=== PATIENT | male | born 1990 | race Two or more races ===

== ENCOUNTER 2024-10-27 16:31 | Inpatient (IN) | payer MEDICAID, OTHER ==
[~2024-10-27] VITALS: Ht 175.3 cm; Wt 112.5 kg
--- NOTE | 2024-10-27 17:45 | ED.PDOC ---
GI ASSESSMENT HPI Comments 34-year-old male with no significant past medical history complaining of left upper quadrant pain for the last 2 days, associated with nausea, vomiting and dark red blood in his vomit. He denies fever, diarrhea, constipation or dysuria. Patient admits to recently using methamphetamine. Chief Complaint: Abdominal Pain Time Seen by MD: 17:40 Reviewed Notes: Nurses Notes, Medications, Allergies Allergies: Coded Allergies: NO KNOWN ALLERGIES (Unverified , 10/27/24) Information Source: Patient Mode of Arrival: Ambulatory Timing: Days Duration: Since onset Prehospital treatment: None Quality: None Vomitus: Watery Stool: Normal Severity: Moderate Recent: None Recent Hx of: None Pain Location: Epigastric, LUQ Modifying Factors: Nothing Associated sign and symptoms: Nausea, Vomiting, Abdominal Pain Past Medical History PAST MEDICAL HISTORY: Denies Surgical History: Denies all surgeries Family History Family History: Unknown Social History Smoker: Unknown Alcohol: Unknown Drugs: Methamphetamine Lives In: Home Constitutional: denies: chills, diaphoresis, fatigue, fever, malaise, sweats, weakness, others EENTM: denies: blurred vision, double vision, ear bleeding, ear discharge, ear drainage, ear pain, ear ringing, eye pain, eye redness, hearing loss, mouth pain, mouth swelling, nasal discharge, nose bleeding, nose congestion, nose pain, photophobia, tearing, throat pain, throat swelling, voice changes, others Respiratory: denies: cough, hemoptysis, orthopnea, SOB at rest, shortness of breath, SOB with excertion, stridor, wheezing, others Cardiovascular: denies: chest pain, dizzy spells, diaphoresis, Dyspnea on exertion, edema, irregular heart beat, left arm pain, lightheadedness, palpitations, PND, syncope, others Gastrointestinal: reports: abdominal pain, nausea, vomiting; denies: abdomen distended, blood streaked bowels, constipated, diarrhea, dysphagia, difficulty swallowing, hematemesis, melena, poor appetite, poor fluid intake, rectal bleeding, rectal pain, others Genitourinary: denies: burning, dysuria, flank pain, frequency, hematuria, incontinence, penile discharge, penile sore, pain, testicle pain, testicle swelling, urgency, others Neurological: denies: dizziness, fainting, headache, left sided numbness, left sided weakness, numbness, paresthesia, pre-existing deficit, right sided numbness, right sided weakness, seizure, speech problems, tingling, tremors, weakness, others Musculoskeletal: denies: back pain, gout, joint pain, joint swelling, muscle pain, muscle stiffness, neck pain, others Integumetry: denies: bruises, change in color, change in hair/nails, dryness, laceration, lesions, lumps, rash, wounds, others Allergic/Immunocompromised: denies: Difficulty Healing, Frequent Infections, Hives, Itching, others Hematologic/Lymphatic: denies: anemia, blood clots, easy bleeding, easy bruising, swollen glands, others Endocrine: denies: excessive hunger, excessive sweating, excessive thirst, excessive urination, flushing, intolerance to cold, intolerance to heat, unexplained weight gain, unexplained weight loss, others Psychiatric: denies: anxiety, bipolar disorder, depression, hopeless, panic disorder, schizophrenia, sleepless, suicidal, others All Other Systems: Reviewed and Negative Physical Exam General Appearance: Mild Distress HEENT: Other (Pupils and face symmetric. Dry mucous membranes.) Neck: Full Range of Motion, Normal Inspection Respiratory: Lungs Clear, No Accessory Muscle Use, No Respiratory Distress, Normal Breath Sounds Cardiovascular: No Edema, No JVD, Regular Rate/Rhythm Breast Exam: Deferred Gastrointestinal: Epigastric, LUQ, Soft, Tenderness Genitalia: Deferred Pelvic: Deferred Rectal: Deferred Extremities: Normal inspection, Normal range of motion, Non-tender, No pedal edema Neurologic: Alert (Oriented x4), Normal Affect, Normal Mood, Other (Ambulatory) Cerebellar Function: NOT DONE Reflexes: NOT DONE Skin: Dry, Pallor, Warm Lymphatic: NOT DONE Was a procedure done? Was a procedure done?: No GI differential Dx Differential Diagnosis: Gastritis/PUD, Gastroenteritis, Dehydration, Drug toxicity, Electrolyte Imbalance, Food Poisoning, Bacterial, Viral, Hypovolemia, Ischemic Bowel, Stress Ulcer X-Ray, Labs, Meds, VS Vital Signs Date Time Temp Pulse Resp B/P (MAP) Pulse Ox O2 Delivery O2 Flow Rate FiO2 10/27/24 18:39 80 18 100 Room Air 10/27/24 18:37 98.4 80 18 149/98 (115) 100 98.4 10/27/24 16:32 97.7 108 18 160/120 99 97.7 Lab Test 10/27/24 18:19 10/27/24 17:36 Range/Units White Blood Count 9.9 4.4-10.8 10^3/uL Red Blood Count 5.42 4.5-5.90 10^6/uL Hemoglobin 17.0 13.5-17.5 g/dL Hematocrit 47.4 41.0-53.0 % Mean Corpuscular Volume 87.4 80.0-100.0 fL Mean Corpuscular Hemoglobin 31.3 28.0-32.0 pg Mean Corpuscular Hemoglobin Concent 35.8 32.0-36.0 g/dL Red Cell Distribution Width 13.3 11.8-14.3 % Platelet Count 290 140-450 10^3/uL Mean Platelet Volume 8.5 6.9-10.8 fL Neutrophils (%) (Auto) 83.0 H 37.0-80.0 % Lymphocytes (%) (Auto) 11.6 10.0-50.0 % Monocytes (%) (Auto) 4.8 0.0-12.0 % Eosinophils (%) (Auto) 0.0 0.0-7.0 % Basophils (%) (Auto) 0.6 0.0-2.0 % Neutrophils # (Auto) 8.3 1.6-8.6 10 ^3/uL Lymphocytes # (Auto) 1.2 0.4-5.4 10 ^3/uL Monocytes # (Auto) 0.5 0-1.3 10 ^3/uL Eosinophils # (Auto) 0 0-0.8 10 ^3/uL Basophils # (Auto) 0.1 0-0.2 10 ^3/uL Nucleated Red Blood Cells 0.2 % Prothrombin Time 11.6 9.3-11.8 sec Prothrombin Time INR 1.11 0.9-1.15 Activated Partial Thromboplast Time 30.2 24.5-34.5 SEC Sodium Level 134 L 136-145 mmol/L Potassium Level 4.1 3.5-5.1 mmol/L Chloride Level 99 98-107 mmol/L Carbon Dioxide Level 21 20-31 mmol/L Anion Gap 14 5-15 Blood Urea Nitrogen 12 9-23 mg/dL Creatinine 1.07 0.700-1.30 mg/dL Glomerular Filtration Rate Calc 94 >90 mL/min BUN/Creatinine Ratio 11.2 10.0-20.0 Serum Glucose 105 74-106 mg/dL Calcium Level 9.7 8.7-10.4 mg/dL Total Bilirubin 0.9 0.2-1.0 mg/dL Aspartate Amino Transferase (AST) 71 H 13-40 U/L Alanine Aminotransferase (ALT) 77 H 7-40 U/L Alkaline Phosphatase 84 46-116 U/L Total Protein 7.9 5.7-8.2 g/dL Albumin 5.1 H 3.2-4.8 g/dL Lipase 50 12-53 U/L Urine Color Yellow Yellow Urine Clarity Clear Clear Urine pH 6.5 5.0-9.0 Urine Specific [place] 1.026 1.001-1.035 Urine Protein 1+ H Negative Urine Ketones 4+ H Negative Urine Blood Trace H Negative /uL Urine Nitrite Negative Negative Urine Bilirubin Negative Negative Urine Urobilinogen Normal Negative mg/dL Urine Leukocyte Esterase Negative Negative /uL Urine RBC <1 0 - 3 /hpf Urine Microscopic WBC 1 0-3 /HPF Urine Squamous Epithelial Cells Few <5 /hpf Urine Bacteria None seen None Seen /hpf Urine Glucose Normal Normal mg/dL Current Medications Medications (Trade) Dose Ordered Sig/Venu Route Start Time Stop Time Status Last Admin Sodium Chloride 1,000 ml @ 1,000 mls/hr Q1H ONCE IV 10/27/24 18:00 10/27/24 18:59 DC 10/27/24 18:30 Ondansetron HCl (Zofran) 4 mg ONCE ONCE IV 10/27/24 18:00 10/27/24 18:01 DC 10/27/24 18:54 Pantoprazole Sodium (Protonix) 40 mg ONCE ONCE IV 10/27/24 18:00 10/27/24 18:01 DC 10/27/24 18:54 PROCEDURE(s): ABPL - CT AB PEL WO CON-NO ORAL OR IV REASON: L abd pain, n/v hematemesis ORDER NUMBER(s): [id number], ACCESSION NUMBER(s): [id number] COMPUTERIZED TOMOGRAPHY ABDOMEN AND PELVIS WITHOUT CONTRAST REASON FOR EXAM: L abd pain, n/v hematemesis COMPARISON: None TECHNIQUE: Spiral scans were acquired from the diaphragm to the symphysis pubis without intravenous contrast administration. 2-D coronal and sagittal reformatted images were provided. Radiation optimization: All CT scans at this facility use at least one of these dose optimization techniques: Automated exposure control mA and/or kV adjustment per patient size (includes targeted exams where dose is matched to clinical indication) or iterative reconstruction. RADIATION DOSE: CTDI: 23.06 mGy DLP: 1326.81 mGy-cm FINDINGS: Respiratory motion artifact degrades evaluation of the lung bases. There is no pleural effusion. There is no pericardial effusion. The spleen is not enlarged. The liver is normal in size and contour. The liver is diffusely hypoattenuating. No calcified gallstone is identified. There is no pericholecystic edema. Evaluation of the abdominal organs is suboptimal in the absence of intravenous contrast. Unenhanced appearance of the pancreas is grossly unremarkable. The adrenal glands are normal. The kidneys are similar in size. There is no hydronephrosis of either kidney. The urinary bladder is decompressed and is not well evaluated on the current study. There is no renal, ureteral, or bladder calculus. There is no abdominal aortic aneurysm. No pathologic lymphadenopathy is identified by size criteria. No free fluid is identified in the abdomen or pelvis. The prostate and seminal vesicles are within normal limits. There is mild dependent and sigmoid colon diverticulosis without evidence of diverticulitis. The appendix is normal. There is no distention of the small bowel to suggest obstruction. There is no pneumoperi toneum. No acute osseous abnormality is identified. IMPRESSION: The liver is diffusely hypoattenuating which may be secondary to steatosis or another diffuse hepatic process. Correlate clinically and with liver function tests. No acute finding in the abdomen or pelvis to explain the patient's abdominal pain. Normal appendix. No evidence of bowel obstruction. X-Ray, Labs, Meds, VS Comment 44-year-old male with no significant past medical history complaining of epigastric and left upper quadrant pain, nausea, vomiting and bloody emesis, also admits to using meth yesterday Vitals remarkable for heart rate 108, BP 160/120 Exam remarkable for epigastric and left upper quadrant tenderness to palpation Rhythm strip independently interpreted by me: Sinus tach, rate 108, no ectopy. CT abdomen and pelvis showed liver hypoattenuation which could be due to steatosis or other hepatic process. No other acute findings. CBC unremarkable, CMP remarkable for AST 71, ALT 77, lipase normal, coag panel normal, UA positive for protein, ketones and blood consistent with volume contraction Patient treated with the following in the ED: 1 L 0.9 normal saline IV bolus, morphine 4 mg IV, Zofran 4 mg IV, Protonix 40 mg IV On re-evaluation, patient states pain has only partially improved. Vitals were stable. Plan is to admit the patient for pain and emesis control and GI evaluation. Time of 1ST Reevaluation: 18:10 Reevaluation 1ST: Unchanged Patient Education/Counseling: Diagnosis, Treatment Family Education/Counseling: No Family Present SEPSIS Sepsis Screen Date sepsis recognized/suspect: Oct 27, 2024 Time Sepsis recognized/suspect: 1631 Recent Procedure: No On Antibiotic Therapy: No Respiratory Rate >20: No Heart Rate >90: Yes Temp<36 C (96.8 F) or >38.3 C: No SBP <90 or MAP <65 mmHG: No New Acute Mental Status Change: No Is the patient on CPAP, BIPAP,: No SEPSIS EXCLUSION NOTE: Sepsis Exclusion Note: Patient presents with SIRS criteria, but the SIRS response is attributed to [pain and/or methamphetamine use ], not a suspected infection. Sepsis bundle is not initiated at this time, due to this reason. Further management will focus on the treatment of the above condition (s). Physician Orders Ct Ab Pel Wo Con-No Oral Or Iv (10/27/24 17:51) Vital Signs Date Time Temp Pulse Resp B/P (MAP) Pulse Ox O2 Delivery O2 Flow Rate FiO2 10/27/24 18:39 80 18 100 Room Air 10/27/24 18:37 98.4 80 18 149/98 (115) 100 98.4 10/27/24 16:32 97.7 108 18 160/120 99 97.7 Laboratory Tests Test 10/27/24 18:19 White Blood Count 9.9 10^3/uL (4.4-10.8) Medications Medications Dose Ordered Sig/Venu Route Start Time Stop Time Status Last Admin Dose Admin Ondansetron HCl 4 mg ONCE ONCE IV 10/27/24 18:00 10/27/24 18:01 DC 10/27/24 18:54 Pantoprazole Sodium 40 mg ONCE ONCE IV 10/27/24 18:00 10/27/24 18:01 DC 10/27/24 18:54 Sodium Chloride 1,000 ml @ 1,000 mls/hr Q1H ONCE IV 10/27/24 18:00 10/27/24 18:59 DC 10/27/24 18:30 Departure 1 Departure Time of Disposition: 21:46 Impression: Primary Impression: Abdominal pain Additional Impressions: Nausea and vomiting Transaminitis Hematemesis Disposition: ADMITTED INPATIENT Admit to: Med Surg Condition: Guarded Critical Care Note Critical Care Time?: No Stability Stability form required: No Heart Score Heart Score: Heart Score Response (Comments) Value History N/A 0 EKG N/A 0 Age N/A 0 Risk Factors N/A 0 Troponin N/A 0 Total 0 I personally scribed for PEYMAN RING MD ([email or web address]) on 10/27/24 at 17:45. Electronically submitted by Breanna Bartlett ([email or web address]). I personally scribed for PEYMAN RING MD ([email or web address]) on 10/27/24 at 19:09. Electronically submitted by Breanna Bartlett ([email or web address]). PEYMAN RING MD Oct 27, 2024 17:45
[2024-10-27] MEDS: SODIUM CHLORIDE 0.9% 1,000 ML IV ONE ×2 (18:30→23:21)
--- NOTE | 2024-10-27 18:31 | DVH ---
COMPUTERIZED TOMOGRAPHY ABDOMEN AND PELVIS WITHOUT CONTRAST REASON FOR EXAM: L abd pain, n/v hematemesis COMPARISON: None TECHNIQUE: Spiral scans were acquired from the diaphragm to the symphysis pubis without intravenous c ontrast administration. 2-D coronal and sagittal reformatted images were provided. Radiation optimiza tion: All CT scans at this facility use at least one of these dose optimization techniques: Automated exposure control mA and/or kV adjustment per patient size (includes targeted exams where dose is mat ched to clinical indication) or iterative reconstruction. RADIATION DOSE: CTDI: 23.06 mGy DLP: 1326.81 mGy-cm FINDINGS: Respiratory motion artifact degrades evaluation of the lung bases. There is no pleural effusion. Ther e is no pericardial effusion. The spleen is not enlarged. The liver is normal in size and contour. The liver is diffusely hypoatte nuating. No calcified gallstone is identified. There is no pericholecystic edema. Evaluation of the abdominal organs is suboptimal in the absence of intravenous contrast. Unenhanced appearance of the p ancreas is grossly unremarkable. The adrenal glands are normal. The kidneys are similar in size. The re is no hydronephrosis of either kidney. The urinary bladder is decompressed and is not well evaluat ed on the current study. There is no renal, ureteral, or bladder calculus. There is no abdominal ao rtic aneurysm. No pathologic lymphadenopathy is identified by size criteria. No free fluid is identi fied in the abdomen or pelvis. The prostate and seminal vesicles are within normal limits. There is mild dependent and sigmoid colon diverticulosis without evidence of diverticulitis. The appendix is n ormal. There is no distention of the small bowel to suggest obstruction. There is no pneumoperitoneum . No acute osseous abnormality is identified. IMPRESSION: The liver is diffusely hypoattenuating which may be secondary to steatosis or another diffuse hepatic process. Correlate clinically and with liver function tests. No acute finding in the abdomen or pelvis to explain the patient's abdominal pain. Normal appendix. N o evidence of bowel obstruction.
[2024-10-27 18:45] LABS: Hematocrit 47.4 % (41.0-53.0); Hemoglobin 17.0 g/dL (13.5-17.5); Mean Corpuscular Hemoglobin 31.3 pg (28.0-32.0); Mean Corpuscular Volume 87.4 fL (80.0-100.0); Nucleated Red Blood Cells % 0.2 %
[2024-10-27 18:46] LABS: Urine Protein, UAD 1+ (Negative)
[2024-10-27] MEDS: MORPHINE SULFATE 4 MG/ML SYR/VIAL IV ONE (18:53)
[2024-10-27] MEDS: ONDANSETRON HCL 4 MG/2 ML VIAL IV ONE (18:54)
[2024-10-27] MEDS: PANTOPRAZOLE 40 MG/10 ML VIAL INJ IV ONE (18:54)
[2024-10-27 18:56] LABS: Alkaline Phosphatase 84 U/L (46-116); Anion Gap 14 (5-15); BUN/Creatinine Ratio 11.2 (10.0-20.0); Bilirubin, Total 0.9 mg/dL (0.2-1.0); Blood Urea Nitrogen 12 mg/dL (9-23); Calcium 9.7 mg/dL (8.7-10.4); Carbon Dioxide 21 mmol/L (20-31); Chloride 99 mmol/L (98-107); Glucose 105 mg/dL (74-106); Lipase 50 U/L (12-53); Potassium 4.1 mmol/L (3.5-5.1); Total Protein 7.9 g/dL (5.7-8.2)
[2024-10-27 19:09] LABS: Alanine Aminotransferase 77 U/L (7-40); Albumin 5.1 g/dL (3.2-4.8); Sodium 134 mmol/L (136-145)
[2024-10-27 19:11] LABS: INR 1.11 (0.9-1.15); Partial Thromboplastin Time 30.2 SEC (24.5-34.5); Prothrombin Time 11.6 sec (9.3-11.8)
--- NOTE | 2024-10-27 23:01 | DVHHPRES ---
History of Present Illness Resident Creating Document: ESTHER EVANS History of Present Illness Mitch Bob is a 34-year-old male with no past medical history came to the ED with chief complaints of 10/10 pain in the left upper quadrant, epigastric region which is nonradiating, constant, cramp like, which increases on inspiration and associated with nausea, vomiting, shortness of breath. Patient states that he has been working in the sun on Saturday for more than 4 hours for which after he felt dizzy, nauseous, vomited 5 times, states that he saw blood in his vomit. Patient also states that his last bowel movement was almost 5 days ago. Patient also states that he has had shortness of breath since the last 3 months and heartburn since last 5 days. Patient also admits to using meth yesterday after 1 year of remission. GI consulted, patient is admitted for further management. Surgical history: Denies Family history: Reviewed, noncontributory Personal history: Smokes 4 cigarettes per day, occasionally drinks once a month , smokes weed every day, used meth Lives with: Family Review of Systems Constitutional: Yes: Sweats, Weakness; No: Fever, Chills, Malaise, Other Eyes: No: Pain, Vision change, Conjunctivae inflammation, Eyelid inflammation, Other, Redness ENT: No: Ear pain, Ear discharge, Nose pain, Nose discharge, Nose congestion, Mouth pain, Mouth swelling, Throat pain, Throat swelling, Other Respiratory: Shortness of breath; No: Cough, Dry, SOB with excertion, Wheezing, Hemoptysis, Pleuritic Pain, Sputum, Wheezing, Other Cardiovascular: No: Chest Pain, Palpitations, Orthopnea, Paroxysmal Noc. Dyspnea, Edema, Lt Headedness, Other Gastrointestinal: Nausea, Vomiting, Abdominal Pain, Other (Hematemesis); No: Diarrhea, Constipation, Melena, Hematochezia Genitourinary: No Dysuria, No Frequency, No Incontinence, No Hematuria, No Retention, No Other Musculoskeletal: No: other, neck pain, shoulder pain, arm pain, back pain, hand pain, leg pain, foot pain Skin: No: Rash, Lesions, Jaundice, Bruising, Other Neurological: No: Weakness, Numbness, Incoordination, Change in speech, Confusion, Seizures, Other Allergies: Coded Allergies: NO KNOWN ALLERGIES (Unverified , 9/9/25) Exam Vital Signs Vital Signs Date Time Temp Pulse Resp B/P (MAP) Pulse Ox O2 Delivery O2 Flow Rate FiO2 10/27/24 22:47 98.9 78 14 159/106 (123) 99 98.9 10/27/24 18:39 Room Air Exam General: Patient alert and oriented in person, place and time. Patient following commands. Moderate distress HEENT: Normocephalic, atraumatic, moist mucous membranes Respiratory/pulmonary: Clear lungs bilaterally, vesicular murmurs present in almost all lung arango, no associated crackles or wheezes. Cardiovascular: Normal heart sounds S1 and S2 with no associated murmurs Abdomen: Left upper quadrant, epigastric tenderness Extremities: There is no peripheral edema present at the lower extremities. Peripheral Pulses: 3+ Radial (R). 3+ Radial (L). 3+ Dorsalis pedis (R). 3+ Dorsalis pedis(L) Skin: No rashes or pruritus, there is no sacral edema present at this time. Neurological: Intact cranial nerves with no focal neurologic deficits Psych:/mood: Normal Labs/Xrays Labs Test 10/27/24 18:19 10/27/24 17:36 Range/Units White Blood Count 9.9 4.4-10.8 10^3/uL Red Blood Count 5.42 4.5-5.90 10^6/uL Hemoglobin 17.0 13.5-17.5 g/dL Hematocrit 47.4 41.0-53.0 % Mean Corpuscular Volume 87.4 80.0-100.0 fL Mean Corpuscular Hemoglobin 31.3 28.0-32.0 pg Mean Corpuscular Hemoglobin Concent 35.8 32.0-36.0 g/dL Red Cell Distribution Width 13.3 11.8-14.3 % Platelet Count 290 140-450 10^3/uL Mean Platelet Volume 8.5 6.9-10.8 fL Neutrophils (%) (Auto) 83.0 H 37.0-80.0 % Lymphocytes (%) (Auto) 11.6 10.0-50.0 % Monocytes (%) (Auto) 4.8 0.0-12.0 % Eosinophils (%) (Auto) 0.0 0.0-7.0 % Basophils (%) (Auto) 0.6 0.0-2.0 % Neutrophils # (Auto) 8.3 1.6-8.6 10 ^3/uL Lymphocytes # (Auto) 1.2 0.4-5.4 10 ^3/uL Monocytes # (Auto) 0.5 0-1.3 10 ^3/uL Eosinophils # (Auto) 0 0-0.8 10 ^3/uL Basophils # (Auto) 0.1 0-0.2 10 ^3/uL Nucleated Red Blood Cells 0.2 % Prothrombin Time 11.6 9.3-11.8 sec Prothrombin Time INR 1.11 0.9-1.15 Activated Partial Thromboplast Time 30.2 24.5-34.5 SEC Sodium Level 134 L 136-145 mmol/L Potassium Level 4.1 3.5-5.1 mmol/L Chloride Level 99 98-107 mmol/L Carbon Dioxide Level 21 20-31 mmol/L Anion Gap 14 5-15 Blood Urea Nitrogen 12 9-23 mg/dL Creatinine 1.07 0.700-1.30 mg/dL Glomerular Filtration Rate Calc 94 >90 mL/min BUN/Creatinine Ratio 11.2 10.0-20.0 Serum Glucose 105 74-106 mg/dL Calcium Level 9.7 8.7-10.4 mg/dL Total Bilirubin 0.9 0.2-1.0 mg/dL Aspartate Amino Transferase (AST) 71 H 13-40 U/L Alanine Aminotransferase (ALT) 77 H 7-40 U/L Alkaline Phosphatase 84 46-116 U/L Total Protein 7.9 5.7-8.2 g/dL Albumin 5.1 H 3.2-4.8 g/dL Lipase 50 12-53 U/L Urine Color Yellow Yellow Urine Clarity Clear Clear Urine pH 6.5 5.0-9.0 Urine Specific [place] 1.026 1.001-1.035 Urine Protein 1+ H Negative Urine Ketones 4+ H Negative Urine Blood Trace H Negative /uL Urine Nitrite Negative Negative Urine Bilirubin Negative Negative Urine Urobilinogen Normal Negative mg/dL Urine Leukocyte Esterase Negative Negative /uL Urine RBC <1 0 - 3 /hpf Urine Microscopic WBC 1 0-3 /HPF Urine Squamous Epithelial Cells Few <5 /hpf Urine Bacteria None seen None Seen /hpf Urine Glucose Normal Normal mg/dL SEPSIS Sepsis Screen Date sepsis recognized/suspect: Oct 27, 2024 Time Sepsis recognized/suspect: 1632 Recent Procedure: No On Antibiotic Therapy: No Respiratory Rate >20: No Heart Rate >90: Yes Temp<36 C (96.8 F) or >38.3 C: No SBP <90 or MAP <65 mmHG: No New Acute Mental Status Change: No Is the patient on CPAP, BIPAP,: No Physician Orders Ct Ab Pel Wo Con-No Oral Or Iv (10/27/24 17:51) Vital Signs Date Time Temp Pulse Resp B/P (MAP) Pulse Ox O2 Delivery O2 Flow Rate FiO2 10/27/24 22:47 98.9 78 14 159/106 (123) 99 98.9 10/27/24 18:39 80 18 100 Room Air 10/27/24 18:37 98.4 80 18 149/98 (115) 100 98.4 10/27/24 16:32 97.7 108 18 160/120 99 97.7 Laboratory Tests Test 10/27/24 18:19 White Blood Count 9.9 10^3/uL (4.4-10.8) Medications Medications Dose Ordered Sig/Venu Route Start Time Stop Time Status Last Admin Dose Admin Ondansetron HCl 4 mg ONCE ONCE IV 10/27/24 18:00 10/27/24 18:01 DC 10/27/24 18:54 4 MG Pantoprazole Sodium 40 mg ONCE ONCE IV 10/27/24 18:00 10/27/24 18:01 DC 10/27/24 18:54 40 MG Sodium Chloride 1,000 ml @ 1,000 mls/hr Q1H ONCE IV 10/27/24 18:00 10/27/24 18:59 DC 10/27/24 18:30 1,000 MLS/HR Assessment/Plan Assessment/Plan Assessment and plan # Upper GI bleed likely because of recurrent vomiting ?Bhumi Bryant tear # hematemesis # Interactable Vomitting # interactable LUQ abd pain - GI consulted, pending - ondansetron -IV protonix -NPO -liver usg -IV fluids # Generalized Fatigue with NHYA class II , ? meth induced CHF - consider echo # GERD - Pantoprozole # Transaminitis # hepatic steatosis - Liver US showed Hepatic steatosis. Otherwise, unremarkable right upper quadrant abdominal ultrasound. -Ct abdomen showed The liver is diffusely hypoattenuating which may be secondary to steatosis or another diffuse hepatic process. # slow transit constipation - Colace # Obesity BMI 36.6 - patient counseled on diet, exercise, lifestyle modifications for 13 minutes PPI prophylaxis: Pantoprazole DVT prophylaxis: Not indicated Goals of care addressed with the patient for more than 31 minutes: Full code status Case discussed with Dr. Knox , patient and nurse Plan discussed with: Patient Date of Service: Oct 27, 2024 Billing Provider: DEIDRE KNOX MD Common Visit Codes: 36622-[id number] INP/OBS CARE (HIGH) Secondary Visit Codes: 37225-[id number] CARE PLAN 30 MINUTES ESTHER EVANS RESIDENT Oct 27, 2024 23:01 MICAH GOYAL RESIDENT Oct 28, 2024 08:28 DEIDRE KNOX MD Oct 28, 2024 19:36
[2024-10-27] MEDS ORDERED: DEXTROSE (50%) 50ML SYRG IV PRN (23:15)
[2024-10-27] MEDS ORDERED: MORPHINE SULFATE INJ 2 MG/ml SYRG IV PRN (23:15)
--- NOTE | 2024-10-27 23:33 | DVH ---
CHEST RADIOGRAPH Indication: cardiomegaly Technique: Single frontal view of the chest was obtained COMPARISON: None FINDINGS: Lines and Tubes: None Lungs: Clear Pleura: No effusion. No pneumothorax. Cardiomediastinal contours: Unremarkable Bones: Unremarkable IMPRESSION: 1. No acute disease.
[2024-10-28] VITALS (11 sets, daily range): BP systolic 140–154; BP diastolic 75–108; PULSE 70–102; RESP 16–20; TEMP 97.5–98.8; O2SAT 94–99
[2024-10-28] MEDS: ACCU-CHEK COMFORT CURVE STRIP VI SCH
[2024-10-28] MEDS: InsuLIN REG 1unit/0.01ml Soln (100units/ml) SC SCH (00:32)
[2024-10-28] MEDS: PANTOPRAZOLE 40 MG/10 ML VIAL INJ IV ONE (01:02)
--- NOTE | 2024-10-28 01:09 | DVH ---
INDICATION: Transaminitis, TECHNIQUE: Multiple real-time sonographic images were obtained of the right upper quadrant. COMPARISON: None FINDINGS: The liver demonstrates diffusely increased echotexture without focal mass lesions. The live r measures 16.9 cm. Normal hepatopetal portal flow identified. No evidence of pleural effusion or ab dominal ascites. There is no intrahepatic or extrahepatic ductal dilatation. The common duct was not adequately visual ized. The gallbladder is without evidence of stone or sludge. The gallbladder wall measures 0.4 cm and is w ithin normal limits. The right kidney measures 9.7 cm. The right kidney is normal in contour, size, and shape. The echogen icity is normal. There is no hydronephrosis. The pancreas is not well visualized due to overlying bowel gas. IMPRESSION: 1. Hepatic steatosis. Otherwise, unremarkable right upper quadrant abdominal ultrasound.
[2024-10-28 01:44] LABS: Amphetamine Screen, Urine Pos (NEGATIVE); Barbiturate Scree,Urine Neg (NEGATIVE); Cannabinoid Screen, Urine Pos (NEGATIVE); Opiate Scree,Urine Neg (NEGATIVE); Phencyclidine Screen, Urine Neg (NEGATIVE)
[2024-10-28 01:45] LABS: Benzodiazephine Screen, Urine Neg (NEGATIVE); Cocaine Screen, Urine Neg (NEGATIVE)
[2024-10-28] MEDS ORDERED: DOCUSATE SOD 100 MG CAP PO PRN (05:30)
[2024-10-28] MEDS: PANTOPRAZOLE 40 MG/10 ML VIAL INJ IV SCH (10:05)
[2024-10-28 10:58] LABS: Hematocrit 43.9 % (41.0-53.0); Hemoglobin 15.7 g/dL (13.5-17.5); Mean Corpuscular Hemoglobin 31.5 pg (28.0-32.0); Mean Corpuscular Volume 88.1 fL (80.0-100.0); Nucleated Red Blood Cells % 0.2 %
--- NOTE | 2024-10-28 11:08 | DVHPN2 ---
Subjective The patient seen and examined at bedside. No vomiting today, still nausea. Reviewed: Care Plan, H&P, Labs, Medications, Previous Orders, Radiology Changes from previous H/P or p: No Changes Eyes: No Pain, No Vision change, No Conjunctivae inflammation, No Eyelid inflammation, No Other, No Redness ENT: No Ear pain, No Ear discharge, No Nose pain, No Nose discharge, No Nose congestion, No Mouth pain, No Mouth swelling, No Throat pain, No Throat swelling, No Other Cardiovascular: No Chest Pain, No Palpitations, No Orthopnea, No Paroxysmal Noc. Dyspnea, No Edema, No Lt Headedness, No Other Respiratory: No Cough, No Dry; Shortness of breath; No SOB with excertion, No Wheezing, No Hemoptysis, No Pleuritic Pain, No Sputum, No Other Gastrointestinal: Nausea, Vomiting, Abdominal Pain; No Diarrhea, No Constipation, No Melena, No Hematochezia; Other (Hematemesis) Genitourinary: No Dysuria, No Frequency, No Incontinence, No Hematuria, No Retention, No Other Musculoskeletal: No other, No neck pain, No shoulder pain, No arm pain, No back pain, No hand pain, No leg pain, No foot pain Skin: No Rash, No Lesions, No Jaundice, No Bruising, No Other Objective Vitals Vital Signs Date Time Temp Pulse Resp B/P (MAP) Pulse Ox O2 Delivery O2 Flow Rate FiO2 10/28/24 09:00 98.8 96 17 140/99 (113) 97 98.8 10/28/24 00:41 Room Air* 0 21 Intake/Output Intake and Output 10/28/24 07:00 Intake Total 0 ml Balance 0 ml Intake Oral 0 ml # Voids 1 General Appearance: Alert, Oriented X3, Cooperative, No acute distress HEENT: Atraumatic, PERRLA, EOMI, Mucous membr. moist/pink Neck: Supple Lungs: Clear to auscultation, Normal air movement Cardiovascular: Regular rate, Normal S1, Normal S2, No murmurs, Gallops, Rubs Abdomen: Normal bowel sounds, Soft, No tenderness Neuro: Cranial nerves 3-12 NL Psych/Mental Status: Mental status NL Medications Current Medications Medications Dose Ordered Sig/Venu Route Start Time Stop Time Status Last Admin Dose Admin Pantoprazole Sodium 40 mg BID IV 10/28/24 10:00 10/28/24 10:05 40 MG Ondansetron HCl 4 mg Q4HPRN PRN IV 10/27/24 23:15 Morphine Sulfate 1 mg Q6HP PRN IV 10/27/24 23:15 Diagnostic Test (Pha) 1 strip Q6HR 10/28/24 00:00 10/28/24 06:02 1 STRIP Insulin Human Regular Q6HR SC 10/28/24 00:00 Dextrose 50 ml UD PRN IV 10/27/24 23:15 Docusate Sodium 100 mg BIDPRN PRN PO 10/28/24 05:30 Laboratory Results Laboratory Tests 10/28/24 10:14 Chemistry Test 10/27/24 18:19 10/28/24 10:14 Albumin 5.1 g/dL (3.2-4.8) H Pending Calcium Level 9.7 mg/dL (8.7-10.4) Pending Total Protein 7.9 g/dL (5.7-8.2) Pending Coagulation Test 10/27/24 18:19 Prothrombin Time 11.6 sec (9.3-11.8) Prothrombin Time INR 1.11 (0.9-1.15) Activated Partial Thromboplast Time 30.2 SEC (24.5-34.5) Lipid panel Test 10/27/24 18:19 Lipase 50 U/L (12-53) Cardiac Markers Test 10/27/24 18:19 B-Type Natriuretic Peptide 6.48 pg/mL (0-100) LFT Test 10/27/24 18:19 10/28/24 10:14 Alanine Aminotransferase (ALT) 77 U/L (7-40) H Pending Alkaline Phosphatase 84 U/L (46-116) Pending Aspartate Amino Transferase (AST) 71 U/L (13-40) H Pending Total Bilirubin 0.9 mg/dL (0.2-1.0) Pending Urinalysis Test 10/27/24 17:36 Urine Color Yellow (Yellow) Urine Clarity Clear (Clear) Urine pH 6.5 (5.0-9.0) Urine Specific [place] 1.026 (1.001-1.035) Urine Protein 1+ (Negative) H Urine Ketones 4+ (Negative) H Urine Blood Trace /uL (Negative) H Urine Nitrite Negative (Negative) Urine Bilirubin Negative (Negative) Urine Urobilinogen Normal mg/dL (Negative) Urine Leukocyte Esterase Negative /uL (Negative) Urine RBC <1 /hpf (0 - 3) Urine Microscopic WBC 1 /HPF (0-3) Urine Squamous Epithelial Cells Few /hpf (<5) Urine Bacteria None seen /hpf (None Seen) Urine Glucose Normal mg/dL (Normal) Labs and/or images reviewed: Labs reviewed by me Assessment/Plan Assessment/Plan # Upper GI bleed likely because of recurrent vomiting ?Bhumi Bryant tear # hematemesis # Interactable Vomitting # interactable LUQ abd pain - GI consulted, pending - ondansetron -IV protonix -NPO -liver usg -IV fluids # Generalized Fatigue with NHYA class II , ? meth induced CHF - consider echo # GERD - Pantoprozole # Transaminitis # hepatic steatosis - Liver US showed Hepatic steatosis. Otherwise, unremarkable right upper quadrant abdominal ultrasound. -Ct abdomen showed The liver is diffusely hypoattenuating which may be secondary to steatosis or another diffuse hepatic process. # slow transit constipation - Colace Status post EGD : show gastritis, hiatal hernia. Will continue protonix and carafate per GI specialist, Dr Hurley recommend. Plan discussed with: Patient Date of Service: Oct 28, 2024 Billing Provider: VERNELL REAL MD Common Visit Codes: [id number] INP/OBS CARE(HIGH) VERNELL REAL MD Oct 28, 2024 11:08
[2024-10-28 11:16] LABS: Alanine Aminotransferase 72 U/L (7-40); Albumin 4.5 g/dL (3.2-4.8); Alkaline Phosphatase 73 U/L (46-116); Anion Gap 12 (5-15); BUN/Creatinine Ratio 9.2 (10.0-20.0); Bilirubin, Total 0.7 mg/dL (0.2-1.0); Blood Urea Nitrogen 10 mg/dL (9-23); Calcium 9.0 mg/dL (8.7-10.4); Carbon Dioxide 24 mmol/L (20-31); Chloride 102 mmol/L (98-107); Glucose 91 mg/dL (74-106); Potassium 3.4 mmol/L (3.5-5.1); Sodium 138 mmol/L (136-145); Total Protein 7.0 g/dL (5.7-8.2)
[2024-10-28] MEDS ORDERED: BENZOCAINE (DENTAL) 20 % SPRAY 60ML MT ONE (12:42)
[2024-10-28] MEDS ORDERED: FLUMAZENIL 0.1 MG/ML INJ 10ML MDV IV ONE (12:42)
--- NOTE | 2024-10-28 14:10 | DVHINCON2 ---
GI Consult Consult Note GI consult note Date of Consultation: 10/28/2024 Chief Complaint: GI bleed Referring Physician: Dr. Mendez H&P: 34-year-old male admitted with complains of left upper quadrant pain, which started two weeks ago but seems to be worsening. Patient says pain is severe 10 on 10 and cramping in nature. Patient has nausea and vomiting with red emesis. Patient admits to working outside on Saturday for about 4 hours and symptoms started after that where he was feeling dizzy nauseous and vomiting. Last bowel movement five days ago. No melena or red blood in stool. 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 Patient also admits to using marijuana. No EGD in past. Denies blood thinners use Past Medical History: Denies Past Surgical History: Denies Social History: Smokes 4 cigarettes per day, occasionally drinks once a month , smokes weed every day, used meth Family History: Noncontributory Review of Systems: Constitutional: no fever, chill, weight loss HEENT: no eye pain, no hearing loss, no oral lesion, no scleral icterus Heart: no chest pain, no chest pressure Lung: no cough, no dyspnea with exertion Abdomen: see HPI Physical exam: General: NAD, AAOX3 Chest: lung arango clear to auscultation Heart: RRR, no murmur Abdomen: non-distended, mild left side tenderness to palpation, +BS Labs: Labs Test 10/28/24 10:14 10/28/24 05:50 10/27/24 18:19 10/27/24 17:36 Range/Units White Blood Count 7.0 # 4.4-10.8 10^3/uL Red Blood Count 4.99 4.5-5.90 10^6/uL Hemoglobin 15.7 13.5-17.5 g/dL Hematocrit 43.9 41.0-53.0 % Mean Corpuscular Volume 88.1 80.0-100.0 fL Mean Corpuscular Hemoglobin 31.5 28.0-32.0 pg Mean Corpuscular Hemoglobin Concent 35.7 32.0-36.0 g/dL Red Cell Distribution Width 13.2 11.8-14.3 % Platelet Count 238 140-450 10^3/uL Mean Platelet Volume 8.3 6.9-10.8 fL Neutrophils (%) (Auto) 61.4 37.0-80.0 % Lymphocytes (%) (Auto) 27.1 10.0-50.0 % Monocytes (%) (Auto) 10.2 0.0-12.0 % Eosinophils (%) (Auto) 0.7 0.0-7.0 % Basophils (%) (Auto) 0.6 0.0-2.0 % Neutrophils # (Auto) 4.3 1.6-8.6 10 ^3/uL Lymphocytes # (Auto) 1.9 0.4-5.4 10 ^3/uL Monocytes # (Auto) 0.7 0-1.3 10 ^3/uL Eosinophils # (Auto) 0 0-0.8 10 ^3/uL Basophils # (Auto) 0 0-0.2 10 ^3/uL Nucleated Red Blood Cells 0.2 % Sodium Level 138 136-145 mmol/L Potassium Level 3.4 L 3.5-5.1 mmol/L Chloride Level 102 98-107 mmol/L Carbon Dioxide Level 24 20-31 mmol/L Anion Gap 12 5-15 Blood Urea Nitrogen 10 9-23 mg/dL Creatinine 1.09 0.700-1.30 mg/dL Glomerular Filtration Rate Calc 92 >90 mL/min BUN/Creatinine Ratio 9.2 L 10.0-20.0 Serum Glucose 91 74-106 mg/dL Calcium Level 9.0 8.7-10.4 mg/dL Total Bilirubin 0.7 0.2-1.0 mg/dL Aspartate Amino Transferase (AST) 62 H 13-40 U/L Alanine Aminotransferase (ALT) 72 H 7-40 U/L Alkaline Phosphatase 73 46-116 U/L Total Protein 7.0 5.7-8.2 g/dL Albumin 4.5 3.2-4.8 g/dL POC Glucose 94 70-106 mg/dl Prothrombin Time 11.6 9.3-11.8 sec Prothrombin Time INR 1.11 0.9-1.15 Activated Partial Thromboplast Time 30.2 24.5-34.5 SEC Troponin I High Sensitivity 3 L </=54 ng/L B-Type Natriuretic Peptide 6.48 0-100 pg/mL Lipase 50 12-53 U/L Plasma/Serum Blood Alcohol < 3.0 <10 mg/dL HIV (1&2) Antibody Negative Negative Urine Color Yellow Yellow Urine Clarity Clear Clear Urine pH 6.5 5.0-9.0 Urine Specific [place] 1.026 1.001-1.035 Urine Protein 1+ H Negative Urine Ketones 4+ H Negative Urine Blood Trace H Negative /uL Urine Nitrite Negative Negative Urine Bilirubin Negative Negative Urine Urobilinogen Normal Negative mg/dL Urine Leukocyte Esterase Negative Negative /uL Urine RBC <1 0 - 3 /hpf Urine Microscopic WBC 1 0-3 /HPF Urine Squamous Epithelial Cells Few <5 /hpf Urine Bacteria None seen None Seen /hpf Urine Glucose Normal Normal mg/dL Urine Opiates Screen Neg NEGATIVE Urine Fentanyl Screen Neg NEGATIVE Urine Barbiturates Screen Neg NEGATIVE Urine Phencyclidine Screen Neg NEGATIVE Urine Amphetamines Screen Pos NEGATIVE Urine Benzodiazepines Screen Neg NEGATIVE Urine Cocaine Screen Neg NEGATIVE Urine Cannabinoids Screen Pos NEGATIVE Imaging: CT abdomen pelvis IMPRESSION: The liver is diffusely hypoattenuating which may be secondary to steatosis or a nother diffuse hepatic process. Correlate clinically and with liver function tests. No acute finding in the abdomen or pelvis to explain the patient's abdominal pain. Normal appendix. No evidence of bowel obstruction. Abdominal ultrasound IMPRESSION: 1. Hepatic steatosis. Otherwise, unremarkable right upper quadrant abdominal ultrasound. Assessment: Upper GI bleed Nausea vomiting Left upper quadrant abdominal pain Hepatic steatosis amphetamine use Marijuana use Plan: Discussed with Dr. Hurley - Pt will be scheduled for an EGD today. Pt was informed of the risks (bleeding, infection, perforation, reaction to sedation medications and cardiopulmonary arrest) and benefit and is agreeable to undergo the procedures. Further recommendations to follow procedure Plan discussed with patient and RN at bedside Thank you for this consult Date of Service: Oct 28, 2024 Billing Provider: JAYMIE PEREZ Common Visit Codes: CONSULT ONLY Consultation Codes: [id number] CONSULT <60MIN JAYMIE PEREZ Oct 28, 2024 14:10
[2024-10-28] MEDS: MIDAZOLAM HCL 2MG/2ML 2ml VIAL (1mg/ml) ONE (14:38)
[2024-10-28] MEDS: fentaNYL CITRATE 100 MCG/2 ML VL ONE (14:38)
[2024-10-28] MEDS: diphenhdrAMINE HCL 50 MG/1 ML VL ONE (14:38)
--- NOTE | 2024-10-28 14:55 | DVHOP2 ---
Operative Report DATE OF OPERATION: 10/28/24 PROCEDURE: Upper Endoscopy with biopsy. PREOPERATIVE INDICATION: The patient is a 34 -year-old male undergoing endoscopy for left upper quadrant pain nausea vomiting and upper GI bleed POSTOPERATIVE DIAGNOSES: 1. 3 cm sliding-type hiatal hernia with grade B linear erosive esophagitis with esophageal ulcers extending into the distal 5-10 cm of the esophagus 2. Mild gastritis and moderate duodenitis of the duodenal bulb otherwise normal examination up to the 2nd and 3rd part of the duodenum PROCEDURE PERFORMED BY: Lainey Hurley GI NURSE: Júnior SCOPE: Olympus videoendoscope. ASA CLASS: 3 PREOPERATIVE MEDICATIONS: Versed 6 mg, Fentanyl 100 mcg, Benadryl 50 mg I administered moderate sedation throughout this _10_ minutes procedure. An independent trained observer pushed medications at my direction, and monitored the patient's level of consciousness and physiological status throughout. PROCEDURE IN DETAIL: After obtaining an informed consent, the patient was placed on left lateral decubitus position. The patient was then sedated with the above medications. A bite block was placed between his teeth. The endoscope was then passed through the oropharynx, into the esophagus, and through the stomach and pylorus up to the second and third part of the duodenum. The endoscope was then withdrawn. The 2nd and 3rd part of the duodenum were normal and the duodenal bulb showed m oderate duodenitis The pre-pyloric area antrum and body showed mild gastritis. Gastric biopsies were obtained. On retroflexion the fundus cardia and angularis were normal. The endoscope was then withdrawn into distal esophagus Patient had a 3 cm sliding-type hiatal hernia with grade B linear erosive esophagitis with ulcers extending in the distal 10 cm of the esophagus and esophageal biopsies were obtained The proximal esophagus and oropharynx were unremarkable The patient tolerated the procedure well without difficulty. COMPLICATIONS : None SPECIMENS: Gastric biopsies Esophageal biopsies DISPOSITION: Transfer back to the floor Stable PLAN: 1. Await for biopsy result 2. Will place pt on Protonix 40 mg bid 3. Carafate 1 g p.o. 4 times a day 4. Full liquid diet advance to soft mechanical 5. DC aspirin NSAIDs smoking alcohol 6. Outpatient follow up with me in 4-6 weeks to review results and discuss further management LAINEY HURLEY MD Oct 28, 2024 14:55
[2024-10-28] MEDS: SUCRALFATE 1 GM/10 ML ORAL SUSP PO SCH (17:00)
[2024-10-29 01:00] VITALS: BP 135/71; PULSE 81; RESP 18; TEMP 97.7; O2SAT 99
[2024-10-29 05:00] VITALS: BP 121/85; PULSE 78; RESP 18; TEMP 97.6; O2SAT 99
[2024-10-29 05:57] LABS: Anion Gap 11 (5-15); Calcium 8.7 mg/dL (8.7-10.4); Carbon Dioxide 23 mmol/L (20-31); Chloride 107 mmol/L (98-107); Sodium 141 mmol/L (136-145)
[2024-10-29 06:03] LABS: Glucose 96 mg/dL (74-106)
[2024-10-29 06:05] LABS: Hematocrit 42.6 % (41.0-53.0); Hemoglobin 15.1 g/dL (13.5-17.5); Mean Corpuscular Hemoglobin 31.1 pg (28.0-32.0); Mean Corpuscular Volume 87.7 fL (80.0-100.0); Nucleated Red Blood Cells % 0.4 %
[2024-10-29 06:07] LABS: BUN/Creatinine Ratio 5.6 (10.0-20.0); Blood Urea Nitrogen < 5 mg/dL (9-23); Potassium 3.3 mmol/L (3.5-5.1)
[2024-10-29 08:00] VITALS: PULSE 68; RESP 20; O2SAT 97
[2024-10-29 08:59] VITALS: BP 129/93; PULSE 70; RESP 20; TEMP 97.8; O2SAT 97
--- NOTE | 2024-10-29 11:02 | DVHDS2 ---
Discharge Summary Date of Admission Oct 27, 2024 at 22:58 Date of Discharge: Oct 29, 2024 Admitting Diagnosis # Upper GI bleed likely because of recurrent vomiting ?Bhumi Bryant tear # hematemesis # Interactable Vomitting # interactable LUQ abd pain # Generalized Fatigue with NHYA class II , ? meth induced CHF # GERD # Transaminitis # hepatic steatosis # slow transit constipation Labs/Diagnostic Data: Laboratory Results Test 10/29/24 05:51 10/29/24 05:06 10/28/24 10:14 10/27/24 18:19 POC Glucose 105 mg/dl (70-106) White Blood Count 5.4 10^3/uL (4.4-10.8) Red Blood Count 4.86 10^6/uL (4.5-5.90) Hemoglobin 15.1 g/dL (13.5-17.5) Hematocrit 42.6 % (41.0-53.0) Mean Corpuscular Volume 87.7 fL (80.0-100.0) Mean Corpuscular Hemoglobin 31.1 pg (28.0-32.0) Mean Corpuscular Hemoglobin Concent 35.4 g/dL (32.0-36.0) Red Cell Distribution Width 13.4 % (11.8-14.3) Platelet Count 220 10^3/uL (140-450) Mean Platelet Volume 8.7 fL (6.9-10.8) Neutrophils (%) (Auto) 53.6 % (37.0-80.0) Lymphocytes (%) (Auto) 35.6 % (10.0-50.0) Monocytes (%) (Auto) 8.7 % (0.0-12.0) Eosinophils (%) (Auto) 0.8 % (0.0-7.0) Basophils (%) (Auto) 1.3 % (0.0-2.0) Neutrophils # (Auto) 2.9 10 ^3/uL (1.6-8.6) Lymphocytes # (Auto) 1.9 10 ^3/uL (0.4-5.4) Monocytes # (Auto) 0.5 10 ^3/uL (0-1.3) Eosinophils # (Auto) 0 10 ^3/uL (0-0.8) Basophils # (Auto) 0.1 10 ^3/uL (0-0.2) Nucleated Red Blood Cells 0.4 % Sodium Level 141 mmol/L (136-145) Potassium Level 3.3 mmol/L (3.5-5.1) Chloride Level 107 mmol/L (98-107) Carbon Dioxide Level 23 mmol/L (20-31) Anion Gap 11 (5-15) Blood Urea Nitrogen < 5 mg/dL (9-23) Creatinine 0.90 mg/dL (0.700-1.30) Glomerular Filtration Rate Calc 116 mL/min (>90) BUN/Creatinine Ratio 5.6 (10.0-20.0) Serum Glucose 96 mg/dL (74-106) Calcium Level 8.7 mg/dL (8.7-10.4) Total Bilirubin 0.7 mg/dL (0.2-1.0) Aspartate Amino Transferase (AST) 62 U/L (13-40) Alanine Aminotransferase (ALT) 72 U/L (7-40) Alkaline Phosphatase 73 U/L (46-116) Total Protein 7.0 g/dL (5.7-8.2) Albumin 4.5 g/dL (3.2-4.8) Prothrombin Time 11.6 sec (9.3-11.8) Prothrombin Time INR 1.11 (0.9-1.15) Activated Partial Thromboplast Time 30.2 SEC (24.5-34.5) Troponin I High Sensitivity 3 ng/L (</=54) B-Type Natriuretic Peptide 6.48 pg/mL (0-100) Lipase 50 U/L (12-53) Plasma/Serum Blood Alcohol < 3.0 mg/dL (<10) HIV (1&2) Antibody Negative (Negative) Test 10/27/24 17:36 Urine Color Yellow (Yellow) Urine Clarity Clear (Clear) Urine pH 6.5 (5.0-9.0) Urine Specific [place] 1.026 (1.001-1.035) Urine Protein 1+ (Negative) Urine Ketones 4+ (Negative) Urine Blood Trace /uL (Negative) Urine Nitrite Negative (Negative) Urine Bilirubin Negative (Negative) Urine Urobilinogen Normal mg/dL (Negative) Urine Leukocyte Esterase Negative /uL (Negative) Urine RBC <1 /hpf (0 - 3) Urine Microscopic WBC 1 /HPF (0-3) Urine Squamous Epithelial Cells Few /hpf (<5) Urine Bacteria None seen /hpf (None Seen) Urine Glucose Normal mg/dL (Normal) Urine Opiates Screen Neg (NEGATIVE) Urine Fentanyl Screen Neg (NEGATIVE) Urine Barbiturates Screen Neg (NEGATIVE) Urine Phencyclidine Screen Neg (NEGATIVE) Urine Amphetamines Screen Pos (NEGATIVE) Urine Benzodiazepines Screen Neg (NEGATIVE) Urine Cocaine Screen Neg (NEGATIVE) Urine Cannabinoids Screen Pos (NEGATIVE) Other Laboratory Tests 10/29/24 05:06 Brief Hx & Hospital Course: This is a 34 years old male with no known past medical history come to emergency department because 11/27 pain in the left upper quadrant, epigastric region which is nonradiating, constant, cramping like and increase on inspiration and associated with nausea and vomiting and shortness for breath. The patient apparently was working in the heat more than 4 hours with make him feel dizzy, nausea, vomited 5 times with blood in vomitus. He also had last bowel movement five days prior to this admission. The patient also had increased shortness a breath in last three months and increased heartburn for five days. Patient also admitted to using methamphetamine one day prior to this admission after one years of remission. The patient was admitted. EGD was done. It showed : 3 cm sliding-type hiatal hernia with grade B linear erosive esophagitis with esophageal ulcers extending into the distal 5-10 cm of the esophagus. Mild gastritis and moderate duodenitis of the duodenal bulb otherwise normal examination up to the 2nd and 3rd part of the duodenum. Dr. Hurley recommend Protonix 40 mg p.o. b.i.d. and Carafate 1 g p.o. every 6 hours. Follow up with GI specialist for biopsy report and also for a repeat EGD down the road to see if the esophagitis and ulcer heal. Physical exam: HEENT: Normocephalic atraumatic pupils equal react to light and accommodation. Extraocular muscles intact, conjunctiva pink, oropharynx moist, no thrush, no exudate. Lymphatic: No lymphadenopathy Cardiovascular exam: S1, S2 was heard. No murmurs, rubs, gallops Lung: Clear on auscultation bilaterally, no wheeze, rale, rhonchi. GI: Abdominal soft, nondistended, nontenderness, positive bowel sounds. Extremity: No crepitus, cyanosis, edema. Pedal pulses present bilateral. Full range of motion. Skin: Normal turgor, no rash. Psych: Alert, oriented x3. Neurology: No focal deficits, cranial nerve II to XII grossly intact. This medical document was created using an electronic medical record system with [employer] direct computerized dictation system. Although this document has been carefully reviewed, there may still be some phonetic and typographical errors. These areas are purely typographical due to imperfections of the software programs, and do not reflect any compromise in the patient's medical care. Condition at Discharge: Stable Final Diagnosis/Problems List # Upper GI bleed likely because of recurrent vomiting ?Bhumi Bryant tear # hematemesis # Interactable Vomitting # interactable LUQ abd pain # Generalized Fatigue with NHYA class II , ? meth induced CHF # GERD # Transaminitis # hepatic steatosis # slow transit constipation Discharge Disposition: Home Discharge Instruct/Medications Scheduled Pantoprazole Sodium Sesquihydr (Protonix), 40 MG PO BID Sucralfate (Carafate Susp), 1 GM PO QID@0600,1130,1700,2200 Scheduled PRN Ondansetron Odt 4MG Tab (Zofran Po), 4 MG PO Q8HPRN PRN Discharge Statement: "Patient was advised to return to the ER or call 911 if any headaches, dizziness, shortness of breath, chest pain, abdominal pain, bleeding, fevers, or worsening of medical condition. Patient was counseled about treatment plan, medications, possible side effects, patientverbalized understanding. All questions were answered to the best of my ability. This discharge took greater then 30 minutes in planning, reviewing documentation, counseling the patient, and discussing with other team members." ASSESSMENT ASSESSMENT Assessment Date of Service: Oct 29, 2024 Billing Provider: VERNELL REAL MD Common Visit Codes: [id number] DISCH DAY >30min VERNELL REAL MD Oct 29, 2024 11:02
[2024-10-29] MEDS ORDERED: ZOFR4T PO (11:03)
[2024-10-29] MEDS ORDERED: SUCR1SUS26 PO (11:03)
[2024-10-29] MEDS ORDERED: PANT40TA2 PO (11:03)
[2024-10-29] MEDS ORDERED: Juven Orange Powder PACKET 27.5gm PO SCH (12:30)
[2024-10-29] MEDS ORDERED: Juven Fruit Punch Powder PACKET 28.8gm PO SCH (12:30)
[2024-10-29] MEDS: ONDANSETRON HCL 4 MG/2 ML VIAL IV PRN (13:08)
[2024-10-29 13:27] VITALS: BP 142/91; PULSE 68; RESP 20; TEMP 97.8; O2SAT 99
--- NOTE | 2024-10-29 13:41 | DVHSR ---
APPROVED REPORT EXAM: Two-dimensional and M-mode echocardiogram with Doppler and color Doppler. Blood Pressure: 121/85 mmHg INDICATION r/o structural heart disease RISK FACTORS Height: 5'9", Weight: 248 DIMENSIONS LVDd4.6 (3.8-5.7cm)LA (2D)3.5 (1.9-4.0cm)Aortic Root3.1 (2.0-3.7cm) LVDs3.4 (2.5-4.0cm)LA (MM) (1.9-4.0cm)Aortic Cusp Exc2.0 (1.5-2.0cm) EF (%) 50.0 (55-70%)Rt. Atrium3.8 (1.9-4.0cm)Asc. Aorta3.1 cm IVSd0.9 (0.7-1.1cm)RV (D) (1.8-2.4cm) PWd0.9 (0.7-1.1cm) Mitral Valve MitralMitral Stenosis E wave0.72m/sMV Mean GR.mmHg A wave0.54m/sMV Peak GR.mmHg E/A ratio1.32D MVAcm2 DECEL [id number] 1/2 Timems Aortic Valve Aortic ValveAortic Stenosis V10.91m/Amy Mean GR.4mmHg V21.15m/Amy Peak GR.5mmHg LVOT Diameter2.4 (1.8-2.4cm)Doppler AVA3.58cm2 Pulmonic Valve V21.14m/s Other Information Quality : Technically LimitedRhythm : Technically limited study due to body habitus. Conclusion lvef 55% mild lvh normal rv function, RV enlarged moderate left atrium enlarged no severe valve abnormaliteis noted
[2024-10-29 15:56] VITALS: BP 129/83; PULSE 68; RESP 20; TEMP 97.8; O2SAT 97
[2024-10-30 11:49] LABS: Hepatitis A Total Antibody Positive (Negative); Hepatitis B Surface Antigen Negative (Negative); Hepatitis C Antibody Negative (Negative)
== END 2024-10-29 16:30 | disposition home or self-care (01) | DRG 242 ==
LOC: ER 16:34 → OVERFLOW 22:58 → WEST WING 10-28 02:21
PROVIDERS: ADMIT Internal Medicine; ATTEND Internal Medicine
PROC: 0DB68ZX Excision of Stomach, Via Natural or Artificial Opening Endoscopic, Diagnostic (ICD-10-PCS; 2024-10-28)
PROC: 0DB18ZX Excision of Upper Esophagus, Via Natural or Artificial Opening Endoscopic, Diagnostic (ICD-10-PCS; principal; 2024-10-28 14:20)
DX: K22.6 Gastro-esophageal laceration-hemorrhage syndrome (principal); I50.9 Heart failure, unspecified; K22.10 Ulcer of esophagus without bleeding; K76.0 Fatty (change of) liver, not elsewhere classified; E66.9 Obesity, unspecified; Z68.36 Body mass index [BMI] 36.0-36.9, adult; K21.9 Gastro-esophageal reflux disease without esophagitis; K29.70 Gastritis, unspecified, without bleeding; K44.9 Diaphragmatic hernia without obstruction or gangrene; R74.01 Elevation of levels of liver transaminase levels; K59.01 Slow transit constipation; F17.210 Nicotine dependence, cigarettes, uncomplicated; F15.90 Other stimulant use, unspecified, uncomplicated; F12.90 Cannabis use, unspecified, uncomplicated; K29.80 Duodenitis without bleeding
CPT/HCPCS: 36415; 43239; 71045; 74176; 76705; 80048; 80053; 80307; 80320; 81001; 82962; 83690; 83880; 84484; 85025; 85610; 85730; 86703; 86704; 86706; 86708; 86803; 86850; 86900; 86901; 87340; 93306; 96361; 96374; 96375; G0378; J2250; J2405; J2470